=== PATIENT | male | born 1960 | race Caucasian/White ===

== ENCOUNTER 2023-02-03 19:13 | Inpatient (IN) | payer MEDICARE, BC ==
[2023-02-03 17:40] LABS: #Lymphocytes 1.2 thou/uL (1.20-3.40); #Monocytes 0.9 thou/uL (0.11-0.59); #Neutrophils 11.8 thou/uL (1.40-6.50); %Basophils 0.3 % (0.0-1.0); %Eosinophils 0.2 % (0.0-10.0); %Lymphocytes 8.5 % (21.0-51.0); %Monocytes 6.5 % (0.0-10.0); %Neutrophils 84.6 % (42.0-75.0); Mean Corpuscular HGB CONC 34.9 g/dL (32.0-36.0); Mean Corpuscular Hemoglobin 33.9 pg (27.0-31.0); Mean Corpuscular Volume 97.2 fl (78.0-98.0); Mean Platelet Volume 9.1 fL (7.4-10.4); Platelet Count 151 10x3/uL (130-400); RBC Distribution Width 11.2 % (11.5-14.5); Red Blood Cell (RBC) Count 4.71 mill/uL (4.70-6.10); White Blood Cell (WBC) Count 13.9 10x3/uL (4.8-10.8)
[~2023-02-03 19:13] MED LIST: Iopamidol 370 76% 100 ML VIAL ONE
[2023-02-03] MEDS ORDERED: Zolpidem Tartrate 5 MG TAB PO PRN (19:45)
[2023-02-03] MEDS ORDERED: Morphine 2 MG/ML VIAL SLOW IVP PRN (19:45)
[2023-02-03] MEDS ORDERED: Aggrastat 12.5 MG/250 ML 12.5 MG in Premix Bag 1 BAG IVPB SCH (19:45)
[2023-02-03] MEDS ORDERED: Nitroglycerin 0.4 MG TAB (25 Tab Bottle) SL PRN (19:45)
[2023-02-03] MEDS ORDERED: TICAGRELOR 90 MG TABLET PO SCH (19:45)
[2023-02-03] MEDS ORDERED: Heparin 25,000 units/D5W 500 ML IV SCH (20:00)
[2023-02-03] MEDS ORDERED: Heparin 10,000 UNITS/ 10 ML VIAL SLOW IVP SCH (20:00)
[2023-02-03] MEDS: Atorvastatin Calcium 40 MG TAB PO SCH (20:19)
[2023-02-03] MEDS: Sodium Chloride 0.9% 1,000 ML IV SCH ×2 (20:27→23:22)
[2023-02-03 20:51] LABS: INR-International Normal Ratio 1.1; Prothrombin Time 14.8 sec (12.0-14.7)
[2023-02-03 21:02] LABS: Anion Gap 19 mmol/L (10-20); BUN (Urea Nitrogen) 16 mg/dL (8.4-25.7); Calc. Creatinine Clearance 0 mL/min (70-130); Calcium 8.6 mg/dL (7.8-10.44); Carbon Dioxide 16 mmol/L (23-31); Chloride 102 mmol/L (98-107); Estimated GFR 97; Glucose 117 mg/dL (80-115); Potassium 3.7 mmol/L (3.5-5.1); Sodium 133 mmol/L (136-145)
[2023-02-03 21:22] VITALS: BMI 27.8
[2023-02-03 23:05] LABS: SARS-CoV-2 NAA Rapid Test Not Detected (NotDetected)
[2023-02-03 23:13] LABS: #Lymphocytes 1.8 thou/uL (1.20-3.40); #Monocytes 1.2 thou/uL (0.11-0.59); #Neutrophils 11.2 thou/uL (1.40-6.50); %Basophils 0.3 % (0.0-1.0); %Eosinophils 0.3 % (0.0-10.0); %Lymphocytes 12.7 % (21.0-51.0); %Monocytes 8.5 % (0.0-10.0); %Neutrophils 78.3 % (42.0-75.0); Hemoglobin 15.2 g/dL (14.0-18.0); Mean Corpuscular HGB CONC 34.9 g/dL (32.0-36.0); Mean Corpuscular Hemoglobin 33.9 pg (27.0-31.0); Mean Corpuscular Volume 97.2 fl (78.0-98.0); Mean Platelet Volume 8.8 fL (7.4-10.4); Platelet Count 158 10x3/uL (130-400); RBC Distribution Width 11.3 % (11.5-14.5); Red Blood Cell (RBC) Count 4.47 mill/uL (4.70-6.10); White Blood Cell (WBC) Count 14.3 10x3/uL (4.8-10.8)
[2023-02-03 23:47] LABS: Troponin I 8.505 ng/mL (< 0.028)
[2023-02-04 02:02] LABS: #Lymphocytes 1.7 thou/uL (1.20-3.40); #Neutrophils 9.2 thou/uL (1.40-6.50); %Basophils 0.1 % (0.0-1.0); %Eosinophils 0.3 % (0.0-10.0); %Lymphocytes 14.4 % (21.0-51.0); %Monocytes 8.5 % (0.0-10.0); %Neutrophils 76.7 % (42.0-75.0); Hemoglobin 14.8 g/dL (14.0-18.0); Mean Corpuscular HGB CONC 34.2 g/dL (32.0-36.0); Mean Corpuscular Hemoglobin 33.3 pg (27.0-31.0); Mean Corpuscular Volume 97.5 fl (78.0-98.0); Mean Platelet Volume 8.6 fL (7.4-10.4); Platelet Count 167 10x3/uL (130-400); RBC Distribution Width 11.3 % (11.5-14.5); Red Blood Cell (RBC) Count 4.45 mill/uL (4.70-6.10); White Blood Cell (WBC) Count 11.9 10x3/uL (4.8-10.8)
[2023-02-04 02:24] LABS: Albumin 3.5 g/dL (3.4-4.8); Anion Gap 12 mmol/L (10-20); Bilirubin, Total 1.3 mg/dL (0.2-1.2); Calcium 8.6 mg/dL (7.8-10.44); Carbon Dioxide 23 mmol/L (23-31); Chloride 106 mmol/L (98-107); Globulin 2.6 g/dL (2.4-3.5); Glucose 131 mg/dL (80-115); Potassium 3.9 mmol/L (3.5-5.1); Protein, Total 6.1 g/dL (5.8-8.1); Sodium 137 mmol/L (136-145)
[2023-02-04 02:25] LABS: Alkaline Phosphatase 65 U/L (40-110)
[2023-02-04 02:26] LABS: Calc. Creatinine Clearance 126 mL/min (70-130); Estimated GFR 101
[2023-02-04 02:27] LABS: AST (SGOT) 63 U/L (5-34); BUN (Urea Nitrogen) 15 mg/dL (8.4-25.7)
[2023-02-04 02:28] LABS: ALT (SGPT) 23 U/L (8-55)
[2023-02-04] MEDS: Morphine 4 MG/ML VIAL SLOW IVP PRN ×2 (02:54→08:15)
[2023-02-04 06:32] LABS: Troponin I 16.171 ng/mL (< 0.028)
[2023-02-04] MEDS: Sodium Chloride 0.9% 1,000 ML IV SCH ×2 (06:38→09:38)
[2023-02-04] MEDS: Tamsulosin HCl 0.4 MG CAP PO SCH (08:00)
[2023-02-04] MEDS: Empagliflozin 10 MG TAB PO SCH (08:01)
[2023-02-04] MEDS: Rivaroxaban 2.5 MG TAB PO SCH ×2 (08:39→22:21)
[2023-02-04] MEDS: Nebivolol HCl 5 MG TAB PO SCH (08:58)
[2023-02-04] MEDS ORDERED: Nebivolol HCl 5 MG TAB PO SCH (09:00)
[2023-02-04 12:48] LABS: Critical Call Chem Troponin I RESULT DECREASING; Troponin I 15.895 ng/mL (< 0.028)
[2023-02-04] MEDS: Atorvastatin Calcium 40 MG TAB PO SCH (21:12)
[2023-02-04] MEDS: TICAGRELOR 90 MG TABLET PO SCH (21:12)
[2023-02-05] MEDS: Sodium Chloride 0.9% 1,000 ML IV SCH (02:25)
[2023-02-05] MEDS: Empagliflozin 10 MG TAB PO SCH (09:00)
[2023-02-05] MEDS ORDERED: Aspirin Chewable 81 MG TAB PO SCH (09:00)
[2023-02-05] MEDS: TICAGRELOR 90 MG TABLET PO SCH (09:00)
[2023-02-05] MEDS: Tamsulosin HCl 0.4 MG CAP PO SCH (09:00)
[2023-02-05] MEDS: Nebivolol HCl 5 MG TAB PO SCH (09:03)
[2023-02-05] MEDS: Rivaroxaban 2.5 MG TAB PO SCH (09:07)
[2023-02-05 16:24] VITALS: BP 128/85; TEMP 97.8
[2023-02-06] MEDS ORDERED: FLU VACC QS2022-23(65YR UP)/PF 240 MCG/0.7 ML SYRINGE IM ONE (21:45)
== END 2023-02-05 18:00 | disposition home or self-care (01) | DRG 247 ==
LOC: CCL 19:13 → CCU 19:14 → 2NO 02-04 15:21
PROVIDERS: ADMIT Internal Medicine Cardiovascular Disease; ATTEND Internal Medicine Cardiovascular Disease
PROC: 027034Z Dilation of Coronary Artery, One Artery with Drug-eluting Intraluminal Device, Percutaneous Approach (ICD-10-PCS; principal; 2023-02-03)
PROC: 4A023N7 Measurement of Cardiac Sampling and Pressure, Left Heart, Percutaneous Approach (ICD-10-PCS; 2023-02-03)
PROC: B2111ZZ Fluoroscopy of Multiple Coronary Arteries using Low Osmolar Contrast (ICD-10-PCS; 2023-02-03)
PROC: B2151ZZ Fluoroscopy of Left Heart using Low Osmolar Contrast (ICD-10-PCS; 2023-02-03)
PROC: B2131ZZ Fluoroscopy of Multiple Coronary Artery Bypass Grafts using Low Osmolar Contrast (ICD-10-PCS; 2023-02-03)
DX: I21.19 ST elevation (STEMI) myocardial infarction involving other coronary artery of inferior wall (principal); I25.10 Atherosclerotic heart disease of native coronary artery without angina pectoris; Z20.822 Contact with and (suspected) exposure to COVID-19; E11.9 Type 2 diabetes mellitus without complications; I10 Essential (primary) hypertension; E78.00 Pure hypercholesterolemia, unspecified; E78.5 Hyperlipidemia, unspecified; Z98.890 Other specified postprocedural states; Z95.5 Presence of coronary angioplasty implant and graft; Z95.1 Presence of aortocoronary bypass graft
CPT/HCPCS: 36415; 80048; 80053; 84484; 85025; 85347; 85610; 92941; 93005; 93010; 93306; 93459; 97139; 99152; 99153; C1725; C1757; C1769; C1874; C1876; C1887; C9606; J1644; J2270; J2272; J7050; Q9967; U0002